=== PATIENT | male | born 1995 ===

== ENCOUNTER 2020-11-26 22:23 | Emergency (ER) | payer SELFPAY ==
[2020-11-26] MEDS ORDERED: ONDANSETRON 4 MG ODT TAB PO ONE (22:32)
[2020-11-26 23:51] LABS: Basophils % (Auto) 0.3 % (0.0-1.8); Hematocrit 46.1 % (35.5-45.6); Hemoglobin 16.3 gm/dl (11.8-15.2); Lymphocytes # (Auto) 1.3 K/mm3 (1.2-5.4); Lymphocytes % (Auto) 12.8 % (13.4-35.0); Mean Corpuscular HGB Conc 35 % (32-34); Mean Corpuscular Volume 90 fl (84-94); Monocytes # (Auto) 0.7 K/mm3 (0.0-0.8); Monocytes % (Auto) 6.4 % (0.0-7.3); Platelet Count 336 K/mm3 (140-440); Red Blood Count 5.15 M/mm3 (3.65-5.03); Red Cell Distribution Width 13.1 % (13.2-15.2)
[2020-11-27 00:09] LABS: Alanine Aminotransferase 22 units/L (7-56); Albumin 5.7 g/dL (3.9-5); BUN/Creatinine Ratio 14; Blood Urea Nitrogen 13 mg/dL (9-20); Calcium 10.7 mg/dL (8.4-10.2); Hemolysis Index 7
[2020-11-27] MEDS ORDERED: ONDANSETRON 4 MG ODT TAB PO ONE (00:59)
--- NOTE | 2020-11-27 01:07 | Cat Scan Report ---
CT head/brain wo con INDICATION: facial numbness. TECHNIQUE: All CT scans at this location are performed using the following dose modulation technique: Automated exposure control. CONTRAST: None. COMPARISON: None available. FINDINGS: Diffusion fibular system is appropriate in size and configuration without midline shift. Ne gative for mass, stroke or hemorrhage. Imaged bones and paranasal sinuses are unremarkable. IMPRESSION: Negative CT brain without contrast. Signer Name: Tomas Childs MD Signed: 11/27/2020 1:03 AM Workstation Name: [id number]
[2020-11-27 02:24] LABS: Bilirubin,Urine NEG (Negative); Blood,Urine NEG (Negative); Color,Urine Yellow (Yellow); Mucus,Urine FEW /HPF; Urobilinogen,Urine < 2.0 mg/dL (<2.0)
[2020-11-27 02:30] LABS: Protein,Urine >500 mg/dL (Negative)
--- NOTE | 2020-11-27 02:39 | Emergency Department Report ---
ED Abdominal Pain HPI - General Chief Complaint: Weakness Stated Complaint: ABD PAIN/NUMBNESS ON RT SIDE PUI?: No Time Seen by Provider: 11/26/20 22:29 Source: patient, family Mode of arrival: Ambulatory Limitations: Language Barrier - History of Present Illness Initial Comments: Chief complaint: Stomach pain HPI: This is a 35-year-old healthy male without significant past medical history who presents with abdominal pain for the last 2 days. He noticed the pain after drinking beer. He only drinks beer on the weekends. Burning sensation which has spontaneously resolved. He also felt tingling intense in his entire body. Patient states he had been hydrating well. He has nausea vomiting which has also resolved. MD Complaint: abdominal pain -: Gradual, days(s) (2) Location: epigastric Severity scale (0 -10): 0 Quality: burning Consistency: now resolved Worsens With: nothing Associated Symptoms: nausea, vomiting, other (Tingling sensation throughout his body, mouth extremities felt tight) - Related Data Previous Rx's Medication Instructions Recorded Last Taken Type Famotidine [Acid-Pep] 20 mg PO BID 30 Days #60 tablet 11/27/20 Unknown Rx Allergies Allergy/AdvReac Type Severity Reaction Status Date / Time No Known Allergies Allergy Verified 11/26/20 22:32 ED Review of Systems ROS: Stated complaint: ABD PAIN/NUMBNESS ON RT SIDE Other details as noted in HPI Comment: All other systems reviewed and negative Constitutional: denies: fever, malaise Cardiovascular: denies: chest pain Gastrointestinal: abdominal pain, nausea, vomiting Neurological: paresthesias ED Past Medical Hx - Past Medical History Previous Medical History?: Yes Additional medical history: left arm weakness. - Surgical History Past Surgical History?: Yes Additional Surgical History: left wrist - Social History Smoking Status: Current Every Day Smoker Substance Use Type: Alcohol - Medications Home Medications: Home Medications Medication Instructions Recorded Confirmed Last Taken Type Famotidine [Acid-Pep] 20 mg PO BID 30 Days #60 tablet 11/27/20 Unknown Rx ED Physical Exam - General Limitations: Language Barrier General appearance: alert, in no apparent distress, other (Well-appearing, nontoxic) - Head Head exam: Present: atraumatic, normocephalic - Eye Eye exam: Present: normal appearance - ENT ENT exam: Present: mucous membranes moist - Neck Neck exam: Present: normal inspection, full ROM - Respiratory Respiratory exam: Present: normal lung sounds bilaterally. Absent: respiratory distress, wheezes, rales, rhonchi - Cardiovascular Cardiovascular Exam: Present: regular rate, normal rhythm, normal heart sounds. Absent: systolic murmur, diastolic murmur, rubs, gallop - GI/Abdominal GI/Abdominal exam: Present: soft, normal bowel sounds. Absent: distended, tenderness, guarding - Rectal Rectal exam: Present: deferred - Extremities Exam Extremities exam: Present: normal inspection - Back Exam Back exam: Present: normal inspection - Neurological Exam Neurological exam: Present: alert, oriented X3 - Psychiatric Psychiatric exam: Present: normal affect, normal mood - Skin Skin exam: Present: warm, dry, intact, normal color. Absent: rash ED Course Vital Signs 11/27/20 00:54 Temperature 98.8 F Pulse Rate 83 Respiratory 16 Rate Blood Pressure 147/82 O2 Sat by Pulse 99 Oximetry ED Medical Decision Making - Lab Data Result diagrams: 11/26/20 22:37 11/26/20 22:37 - Medical Decision Making 1. Abdominal pain after imbibing suspect gastritis versus peptic ulcer disease. Prescribed famotidine 2. Paresthesias: Suspect dehydration, urinalysis reflective of ketonuria, increased hemoglobin hematocrit as well as hypochloremia reflective volume contraction Refer to outpatient physician Critical care attestation.: If time is entered above; I have spent that time in minutes in the direct care of this critically ill patient, excluding procedure time. ED Disposition Clinical Impression: Gastritis, Dehydration Disposition: DC-01 TO HOME OR SELFCARE Is pt being admited?: No Does the pt Need Aspirin: No Condition: Stable Instructions: Dehydration, Adult, [id number], Gastritis, Adult, [id number] Prescriptions: Famotidine [Acid-Pep] 20 mg PO BID 30 Days #60 tablet Referrals: BRAD WALTER MD [Staff Physician] - 3-5 Days Print Language: IRANIAN
[2020-11-27 02:45] VITALS: BP 132/65
== END 2020-11-27 02:45 | disposition home or self-care (01) ==
LOC: ED 22:23
DX: K29.70 Gastritis, unspecified, without bleeding (principal); E86.0 Dehydration; F17.200 Nicotine dependence, unspecified, uncomplicated; Z79.899 Other long term (current) drug therapy; Z98.890 Other specified postprocedural states
CPT/HCPCS: 36415; 70450; 80053; 81001; 83690; 85025; Q0162